=== PATIENT | male | born 1940 | race Caucasian/White ===

== ENCOUNTER 2024-10-25 07:15 | Observation (INO) | payer MEDICARE, OTHER ==
[2024-10-23 12:06] LABS: BASOPHILS % 0.5 % (0.0-1.0); EOSINOPHILS % 0.5 % (0.0-6.0); HEMATOCRIT 45.9 % (38.2-49.6); HEMOGLOBIN 15.2 g/dL (14.0-18.0); LYMPHOCYTES # (AUTO) 1.2 (1.0-3.2); MEAN CORPUSCULAR HEMOGLOBIN 33.9 pg (28-32); MEAN CORPUSCULAR HGB CONC 33.1 g/dL (31-35); MEAN CORPUSCULAR VOLUME 102.5 fL (81-99); MONOCYTES # (AUTO) 0.5 (0.2-0.8); MONOCYTES % 8.9 % (4.4-11.3); NEUTROPHILS # (AUTO) 3.8 (2.1-6.9); NEUTROPHILS % 68.9 % (38.7-80.0); PLATELET COUNT 154 x10e3/uL (140-360); RED BLOOD COUNT 4.48 x10e6/uL (4.3-5.7); RED CELL DISTRIBUTION WIDTH 12.1 % (11.7-14.4); WHITE BLOOD COUNT 5.48 x10e3/uL (4.8-10.8)
[2024-10-23 12:37] LABS: INR 1.06; PROTHROMBIN TIME 14.4 seconds (11.9-14.5)
[2024-10-23 12:38] LABS: PARTIAL THROMBOPLASTIN TIME 37.2 seconds (23.8-35.5)
[2024-10-23 12:44] LABS: ANION GAP 16.1 mmol/L (8-16); CALCIUM 9.8 mg/dL (8.4-10.2); CREATININE, SERUM 0.85 mg/dL (0.72-1.25); POTASSIUM 4.1 mmol/L (3.5-5.1)
[~2024-10-25 07:15] MED LIST: AIRBORNE CHEWA1 EACH; ALLOPURINOL300 MG PO; AUGMENTIN 500-1 EACH PO; FLECAINIDE ACE100 MG PO; LEVOTHYROXINE50 MCG PO; ROSUVASTATIN CA20 MG PO
[2024-10-25] MEDS: LACTATED RINGER'S 1,000 ML ONE (08:24)
[2024-10-25] MEDS: CEFAZOLIN SODIUM 2 GM ONE (08:25)
[2024-10-25] MEDS ORDERED: ACETAMINOPHEN 1000 MG/100 ML 100 ML IV ONE (08:44)
[2024-10-25] MEDS ORDERED: ROCURONIUM BROMIDE 1 ML IV ONE (08:44)
[2024-10-25] MEDS ORDERED: PROPOFOL IV EMULSION 10 MG/ML 20 ML VIAL ONE (08:44)
[2024-10-25] MEDS ORDERED: LIDOCAINE HCL 2% LOCAL INJ 5 ML SDV VIAL INJ ONE (08:44)
[2024-10-25] MEDS ORDERED: SEVOFLURANE INHAL SOLN 250 ML PEN BTL ONE (08:44)
[2024-10-25] MEDS ORDERED: FENTANYL CITRATE/PF 100MCG/2 ML INJ ONE (08:44)
[2024-10-25] MEDS ORDERED: KETAMINE 50MG/5ML SYR ONE (08:45)
[2024-10-25] MEDS ORDERED: PROPOFOL IV EMULSION 50 ML IV ONE ×2 (09:46→10:54)
[2024-10-25] MEDS ORDERED: DEXAMETHASONE SOD PHOS INJ 4 MG/ML SDV ONE (10:11)
[2024-10-25] MEDS ORDERED: ONDANSETRON HCL INJ 2MG/ML 2ML 2 MG/ML VIAL ONE (10:11)
[2024-10-25] MEDS ORDERED: SUGAMMADEX SODIUM 200 MG/2 ML VIAL IV ONE (10:14)
[2024-10-25] MEDS ORDERED: LACTATED RINGER'S 1,000 ML ONE (10:59)
[2024-10-25] MEDS ORDERED: EPHEDRINE SULFATE INJ 50 MG/ML VIAL ONE (11:12)
[2024-10-25] MEDS ORDERED: HYDROCODON-ACE1 EA12 PO (12:06)
[2024-10-25] MEDS ORDERED: OXYCODONE/ACETAMINOPHEN 5-325 1 EACH TABLET PO PRN (12:15)
[2024-10-25] MEDS ORDERED: MAGNESIUM/ALUMINUM/SIMETHICONE 30 ML UDC PO PRN (12:15)
[2024-10-25] MEDS ORDERED: ACETAMINOPHEN 325 MG TAB PO PRN (12:15)
[2024-10-25] MEDS ORDERED: ZOLPIDEM TARTRATE 5 MG TAB PO PRN (12:15)
[2024-10-25] MEDS ORDERED: HYDROMORPHONE 2MG/ML IV PRN (12:15)
[2024-10-25] MEDS ORDERED: ONDANSETRON HCL INJ 2MG/ML 2ML 2 MG/ML VIAL IV PRN (12:15)
[2024-10-25] MEDS ORDERED: CARISOPRODOL 350 MG TAB PO PRN (12:15)
[2024-10-25] MEDS ORDERED: PROMETHAZINE HCL (IM) 25 MG/ML VIAL IM PRN (12:15)
[2024-10-25] MEDS ORDERED: Morphine 2mg Syringe 2 MG/ML SYR IV PRN (12:15)
[2024-10-25] MEDS: HYDROMORPHONE 1MG/1ML INJ ONE (12:25)
[2024-10-25 15:00] VITALS: BP 141/75; PULSE 51; RESP 17; TEMP 97.1; O2SAT 97
[2024-10-25] MEDS: LACTATED RINGER'S 1,000 ML IV SCH (15:19)
[2024-10-25 16:24] VITALS: BP 146/81; PULSE 58; RESP 18; TEMP 95.7; O2SAT 99
[2024-10-25] MEDS: AMOXICILLIN/CLAVULANATE K 875 MG TAB PO SCH (17:00)
[2024-10-25] MEDS: FLECAINIDE ACETATE 100 MG TAB PO SCH (17:00)
[2024-10-25 19:20] VITALS: BP 154/83; PULSE 62; RESP 21; TEMP 97.5; O2SAT 99
[2024-10-25] MEDS: IBUPROFEN 400 MG TAB PO PRN (20:23)
[2024-10-25] MEDS: ALLOPURINOL 300 MG TAB PO SCH (21:00)
[2024-10-25 23:30] VITALS: BP 135/77; PULSE 59; RESP 18; TEMP 97.6; O2SAT 98
[2024-10-26 03:21] VITALS: BP 151/78; PULSE 51; RESP 18; TEMP 97.4; O2SAT 97
[2024-10-26] MEDS: CRESTOR 10MG PO SCH (09:00)
[2024-10-26] MEDS: LEVOTHYROXINE SODIUM 50 MCG TAB PO SCH (09:00)
== END 2024-10-26 12:30 | disposition home or self-care (01) ==
LOC: OR 07:15 → PACU V 12:02 → MED/SURG2 13:33
PROVIDERS: ADMIT Neurological Surgery; ATTEND Neurological Surgery
DX: M48.062 Spinal stenosis, lumbar region with neurogenic claudication (principal); Z98.1 Arthrodesis status; I10 Essential (primary) hypertension; E78.5 Hyperlipidemia, unspecified; I44.0 Atrioventricular block, first degree; G25.0 Essential tremor; E03.9 Hypothyroidism, unspecified; I25.10 Atherosclerotic heart disease of native coronary artery without angina pectoris; M06.9 Rheumatoid arthritis, unspecified; M19.91 Primary osteoarthritis, unspecified site; I49.3 Ventricular premature depolarization; K57.90 Diverticulosis of intestine, part unspecified, without perforation or abscess without bleeding; Z01.810 Encounter for preprocedural cardiovascular examination; Z01.812 Encounter for preprocedural laboratory examination; Z01.818 Encounter for other preprocedural examination; Z79.899 Other long term (current) drug therapy
CPT/HCPCS: 36415; 63047; 63048 ×2; 71046; 72020; 80048; 85025; 85610; 85730; 86850; 86900; 88304; 93005; G0378 ×2; J0131; J0690 ×2; J1100; J1171; J2003; J2405; J2704 ×2; J3010; J7121